=== PATIENT | female | born 1960 | race Caucasian/White ===

== ENCOUNTER 2021-07-26 13:00 | Outpatient (RCR) | payer BC, SELFPAY ==
[2021-07-26] MEDS: Normal Saline Flush 10 ML SYR IVP ×2 (13:12→13:41)
[2021-07-26 13:24] LABS: ESR 58 mm/hr (0-30)
[2021-07-26 13:39] LABS: Creatine Kinase 46 U/L (26-192)
[2021-07-26] MEDS: DAPTOmycin 1,000 MG in Normal Saline 50 ML 100 MG IVPB (13:40)
== END 2021-08-24 23:59 | disposition home or self-care (01) ==
LOC: INF 13:00
PROVIDERS: PCP Nurse Practitioner Family; Visit Provider Internal Medicine
DX: M86.9 Osteomyelitis, unspecified (principal); Z79.2 Long term (current) use of antibiotics; Z45.2 Encounter for adjustment and management of vascular access device
CPT/HCPCS: 36592; 82550; 85652; 96365; J0878